=== PATIENT | male | born 1985 | race Hispanic/Latino ===

== ENCOUNTER 2017-09-20 00:08 | Emergency (ER) | payer SELFPAY ==
--- NOTE | 2017-09-20 07:11 | Emergency Department Report ---
HPI - General Chief Complaint: Skin/Abscess/Foreign Body Time Seen by Provider: 09/20/17 06:50 - HPI HPI: This is a 31-year-old male presents to the emergency department with the complaint of a foreign body in the urethra. The patient is attempting to get a penile piercing and in order to prepare himself for that, the rating specialist provided him with something that they call a "cork" that is supposed to slightly dilated the urethra and/or get him use to the discomfort of the piercing. This entails a plastic portion that is considered to be the "back", similar to the back of a earing, and that is the portion that goes into the urethra. On the end of this is more of a disc that keeps it from going too far into the urethra. However the patient had an episode in which the disc appeared to follow down his leg and the "back", the plastic piece, was lodged in the urethra. He attempted to get it out with some tweezers but ended up pushing it further in. Since that time he has been having some pain and difficulty with urination. He has not taken anything for her symptoms prior to presentation. ED Past Medical Hx - Past Medical History Previous Medical History?: No - Surgical History Past Surgical History?: Yes Additional Surgical History: Hernia surgery 2004 ED Review of Systems ROS: Stated complaint: FOREIGN BODY IN PENIS Other details as noted in HPI Comment: All other systems reviewed and negative Constitutional: denies: chills, fever Eyes: denies: eye pain, eye discharge, vision change ENT: denies: ear pain, throat pain Respiratory: denies: cough, shortness of breath, wheezing Cardiovascular: denies: chest pain, palpitations Gastrointestinal: denies: abdominal pain, nausea, diarrhea Genitourinary: dysuria, other (penile pain) Musculoskeletal: denies: back pain, joint swelling, arthralgia Skin: denies: rash, lesions Neurological: denies: headache, weakness, paresthesias Physical Exam - Physical Exam Vital Signs: Vital Signs 09/20/17 09/20/17 00:25 00:56 Temperature 97.5 F L 97.5 F L Pulse Rate 73 72 Respiratory 18 18 Rate Blood Pressure 121/74 121/74 O2 Sat by Pulse 99 98 Oximetry Physical Exam: GENERAL: The patient is well-developed well-nourished. HENT: Normocephalic. Atraumatic. Patient has moist mucous membranes. EYES: Extraocular motions are intact. Pupils equal reactive to light bilaterally. NECK: Supple. Trachea is midline. CHEST/LUNGS: Clear to auscultation. There is no respiratory distress noted. HEART/CARDIOVASCULAR: Regular. There is no tachycardia. There is no gallop rub or murmur. ABDOMEN: Abdomen is soft, nontender. Patient has normal bowel sounds. There is no abdominal distention. SKIN: Skin is warm and dry. NEURO: The patient is awake, alert, and oriented. The patient is cooperative. The patient has no focal neurologic deficits. The patient has normal speech. MUSCULOSKELETAL: There is no tenderness or deformity. There is no limitation range of motion. There is no evidence of acute injury. : Normal-appearing penis and scrotum. There is no signs of any laceration or piercing. No visible sign of the foreign body. There is possibly an area to the ventral portion of the midshaft penis where the foreign body might be palpable. ED Course Vital Signs 09/20/17 09/20/17 00:25 00:56 Temperature 97.5 F L 97.5 F L Pulse Rate 73 72 Respiratory 18 18 Rate Blood Pressure 121/74 121/74 O2 Sat by Pulse 99 98 Oximetry - Consultations Consultation #1: I spoke to the urologist [facility] who recommended trying to get the patient to urinate in the hopes that the foreign body would come out and to attempt trying to get the patient to manipulate the penile shaft from back to front to try and get the foreign body out. If this does not work, they will take the patient as an ED to ED transfer. 09/20/17 07:36 09/20/17 08:44 Attempted to do the manipulation and attempted to have the patient urinate, even after oral challenge and IV fluid resuscitation, but patient is unable to do so and has increased pain with attempts. I called back [facility] and Dr. Bonilla has agreed for an ED to ED transfer. ED Medical Decision Making - Radiology Data Radiology results: image reviewed interpreted by me: X-ray of the pelvis shows some type of circular radiopaque foreign body that appears to be somewhere within the penis and scrotum. - Medical Decision Making 31-year-old male presents with what appears to be a foreign body stuck within the urethra. It might be palpable in the mid shaft of the penis but there is no signs of any piercing in this region or any laceration where this foreign body could've been inserted. Along with the patient's description of the device and what happened, it appears to be within the urethra, at least about 3 cm inside. I spoke with the urology at [facility] who suggested attempting manual manipulation and trying to get the patient's to urinate. Neither of these worked and the patient will be transferred to the [facility] emergency department to be seen by their urology service. - Differential Diagnosis foreign body, urethritis, UTI Critical Care Time: No Critical care attestation.: If time is entered above; I have spent that time in minutes in the direct care of this critically ill patient, excluding procedure time. ED Disposition Clinical Impression: Foreign body in urethra Qualifiers: Encounter type: initial encounter Qualified Code(s): T19.0XXA - Foreign body in urethra, initial encounter Disposition: [id number]/TX-[id number] ANOTHER TYPE HLTHCARE Is pt being admited?: No Condition: Stable Referrals: PRIMARY CARE, [Primary Care Provider] - 3-5 Days Time of Disposition: 08:46
[2017-09-20] MEDS ORDERED: NORCO 5/325 PO ONE (07:13)
--- NOTE | 2017-09-20 07:28 | XRay Report ---
AP PELVIS: History: Pain, foreign body in penis. AP view of the pelvis shows normal pelvic contour and soft tissues. The hips are symmetric and within normal limits as are the sacroiliac joints. There is a subtle curvilinear density overlying the mid shaft of the penis and also overlies the scrotum. This may represent a foreign body. Please correlate with the patient and the image. IMPRESSION: Normal bony pelvis. Soft tissue findings as described.
[2017-09-20] MEDS ORDERED: NACL 0.9% 1000 ML 1,000 ML IV ONE (07:39)
[2017-09-20 07:47] VITALS: BP 118/72
== END 2017-09-20 10:03 | disposition other institution (70) ==
LOC: ED 00:08
DX: T19.0XXA Foreign body in urethra, initial encounter (principal); X58.XXXA Exposure to other specified factors, initial encounter; Y93.9 Activity, unspecified; Y99.9 Unspecified external cause status; Y92.89 Other specified places as the place of occurrence of the external cause
CPT/HCPCS: 72170; 96360